=== PATIENT | male | born 1980 | race Caucasian/White ===

== ENCOUNTER 2017-04-04 05:07 | Observation (INO) ==
[2017-04-04] MEDS ORDERED: 0.9 % Sodium Chloride 1,000 ML IVC ONE ×2 (05:21→05:26)
[2017-04-04] MEDS ORDERED: Vancomycin 1,000 MG VIAL IVPB ONE (05:21)
[2017-04-04] MEDS ORDERED: *HR* LORazepam 2 MG/ML VIAL IVP ONE (05:26)
--- NOTE | 2017-04-04 05:28 | Emergency Department Note ---
Disposition Clinical Impression: Cellulitis and abscess of upper arm and forearm Disposition: Admitted As Inpatient Condition: Fair Forms: ED Satisfaction Letter Skin/Abscess/FB HPI Chief complaint: ED Skin/Abscess/Foreign Body Stated complaint: left arm/hand abscess Time Seen by Provider: 04/04/17 05:11 Source: patient Mode of arrival: private vehicle Limitations: no limitations Nursing Notes Reviewed: Yes Vital Signs Reviewed: Yes Pt Subjective Complaint: abscess/boil Onset (ago): day(s) (3-4) Tetanus Up to Date: yes Location: LUE (left AC) Severity: severe Quality: sharp Consistency: constant Improves with: none Worsens with: other (being cuffed by police) Context: IVDA Associated symptoms: Denies: fever, chills, rigors, itching, nausea, vomiting, malaise, arthralgias, shortness of breath Treatments prior to arrival: bandages Previous Rx's Medication Instructions Recorded Gabapentin [Neurontin] 800 mg PO TID #180 capsule 11/22/15 Clomipramine HCl [Anafranil] 50 mg PO HS #60 capsule 01/31/16 Quetiapine Fumarate [Seroquel] 50 mg PO BID #120 tablet 01/31/16 Allergies Allergy/AdvReac Type Severity Reaction Status Date / Time No Known Allergies Allergy Verified 11/18/15 12:01 All systems ED: reviewed and negative except as stated. Review of Systems: As Per HPI Constitutional: Denies: fever, chills, weakness Cardiovascular: Denies: chest pain, palpitations Respiratory: Denies: cough, dyspnea Gastrointestinal: Denies: abdominal pain, nausea, vomiting Musculoskeletal: Denies: back pain, neck pain, joint swelling Neurological: Denies: numbness, paresthesias Hematological/Lymphatic: Denies: easy bleeding, easy bruising, lymphadenopathy Past Medical History - Past Medical History Attestation: Yes The following information was validated with the patient. Source: patient Medical history: Reports: hepatitis, other Surgical history: Reports: other Psychiatric history: Reports: anxiety, depression, prior suicide attempt, previous psychiatric hospitalization - Social History Smoking Status: Current every day smoker Smokeless Tobacco Status: No Alcohol use: Reports: none Drug use: Reports: cocaine, opiates, IV Drug Use, other Physical Exam - General Limitations: no limitations General appearance: alert, in no apparent distress, anxious - Head Head exam: atraumatic, normocephalic, normal inspection - Eye Eye exam: Present: normal appearance, PERRL. Absent: scleral icterus, conjunctival injection, periorbital swelling - ENT ENT exam: mucous membranes moist - Neck Neck exam: Present: normal inspection, full ROM, trachea midline. Absent: meningismus - Chest Chest inspection: Present: normal inspection - Respiratory Respiratory exam: Present: normal lung sounds bilaterally. Absent: respiratory distress - Cardiovascular Cardiovascular exam: Present: normal rhythm, tachycardia - Extremities Exam Extremities exam: Present: tenderness, normal capillary refill - Neurological Exam Neurological exam: Present: alert, oriented X3, CN II-XII intact, normal gait - Psychiatric Psychiatric exam: Present: normal mood, anxious, flat affect - Skin Skin exam: Present: warm, dry, intact - Expanded Skin Exam Type of lesion: Present: abscess Distribution: LUE (left distal volar humeral area to proximal forearm, tender, indurated, spontaneously draining abscess with erythema extending to mid forearm and mid upper arm.) Description: Present: tenderness, erythematous, swelling, indurated Course Course Narrative: Patient with history of IV drug abuse presents from the street by private auto for evaluation of left arm pain, redness and swelling from an abscess. He states that he has had the abscess for three or four days. He believes it is from injecting heroin. He denies fever, chills, nausea, vomiting, paresthesias or weakness in the extremity, chest pain, shortness of breath, confusion, lethargy, or syncope. He states that he does feel anxious about being here. On exam, he does appear to be anxious and is tachycardic. Heart rhythm is regular. No murmurs are heard. He has significant circumferential cellulitis of the left arm. He has intact sensory and motor function in the radial, ulnar and median nerve distributions of the left upper extremity. There is no palpable subcutaneous emphysema. There is a significant amount of purulent material draining from a 2 cm in diameter size circular opening in the left AC. Labs, meds and fluids have been ordered. Case was discussed with Dr. Gomes. He has had [id number] time with the patient and agrees with the assessment and plan. Patient will be admitted. Vital Signs Temperature 98.2 F 04/04/17 05:09 Pulse Rate 132 04/04/17 05:09 Respiratory Rate 16 04/04/17 05:09 Blood Pressure 139/82 04/04/17 05:09 O2 Sat by Pulse Oximetry 100 04/04/17 05:09 Temperature 98.2 F 04/04/17 05:09 Pulse Rate 132 04/04/17 05:09 Respiratory Rate 16 04/04/17 05:09 Blood Pressure 139/82 04/04/17 05:09 O2 Sat by Pulse Oximetry 100 04/04/17 05:09 Oxygen Delivery Oxygen Delivery Room Air Skin/Abscess/Foreign Body - Medical Records Medical records reviewed: Yes I reviewed the patient's medical records. - Lab Data Lab results reviewed: Yes I reviewed the patient's lab results. Lab results narrative: Laboratory Last Values WBC 16.4 K/mcL (4.3-11.1) H 04/04/17 05:30 RBC 4.97 M/mcL (4.19-5.50) 04/04/17 05:30 Hgb 14.6 g/dL (12.9-16.9) 04/04/17 05:30 Hct 41.3 % (37.5-50.1) 04/04/17 05:30 MCV 83.1 fL (83.0-100.0) 04/04/17 05:30 MCH 29.4 pg (28.0-33.3) 04/04/17 05:30 MCHC 35.4 g/dL (31.6-35.5) 04/04/17 05:30 RDW 12.3 % (11.5-14.5) 04/04/17 05:30 Plt Count 199 K/mcL (140-400) 04/04/17 05:30 MPV 8.9 fL (9.4-12.4) L 04/04/17 05:30 Immature Gran % 0.7 % (0-4) 04/04/17 05:30 Seg Neutrophils % 88.3 % 04/04/17 05:30 Lymphocytes % 5.2 % 04/04/17 05:30 Monocytes % 5.4 % 04/04/17 05:30 Eosinophils % 0.1 % 04/04/17 05:30 Basophils % 0.3 % 04/04/17 05:30 Neutrophils # 14.5 K/mcL (1.6-8.9) H 04/04/17 05:30 Lymphocytes # 0.9 K/mcL (0.6-4.6) 04/04/17 05:30 Monocytes # 0.9 K/mcL (0.0-1.3) 04/04/17 05:30 Eosinophils # 0.0 K/mcL (0.0-0.6) 04/04/17 05:30 Basophils # 0.1 K/mcL (0.0-0.2) 04/04/17 05:30 Sodium 138 mEq/L (136-145) 04/04/17 05:30 Potassium 3.5 mEq/L (3.5-5.1) 04/04/17 05:30 Chloride 96 mEq/L (98-107) L 04/04/17 05:30 Carbon Dioxide 33 mEq/L (23-29) H 04/04/17 05:30 BUN 10 mg/dL (6-20) 04/04/17 05:30 Creatinine 0.75 mg/dL (0.70-1.30) 04/04/17 05:30 Est GFR ( Amer) > 60 (> 60) 04/04/17 05:30 Est GFR (Non-Af Amer) > 60 (> 60) 04/04/17 05:30 BUN/Creatinine Ratio 13 (6-26) 04/04/17 05:30 Glucose 130 mg/dL (70-105) H 04/04/17 05:30 Calculated Osmolality 287 (280-300) 04/04/17 05:30 Calcium 9.2 mg/dL (8.6-10.3) 04/04/17 05:30
[2017-04-04 05:39] LABS: Basophils # 0.1 K/mcL (0.0-0.2); Basophils % 0.3 %; Eosinophils % 0.1 %; Hematocrit 41.3 % (37.5-50.1); Hemoglobin 14.6 g/dL (12.9-16.9); Immature Granulocytes % 0.7 % (0-4); Lymphocytes # 0.9 K/mcL (0.6-4.6); Lymphocytes % 5.2 %; Mean Corpuscular HGB Conc 35.4 g/dL (31.6-35.5); Mean Corpuscular Hemoglobin 29.4 pg (28.0-33.3); Mean Corpuscular Volume 83.1 fL (83.0-100.0); Mean Platelet Volume 8.9 fL (9.4-12.4); Monocytes # 0.9 K/mcL (0.0-1.3); Monocytes % 5.4 %; Neutrophils # 14.5 K/mcL (1.6-8.9); Platelet Count 199 K/mcL (140-400); Red Blood Count 4.97 M/mcL (4.19-5.50); Red Cell Distribution Width 12.3 % (11.5-14.5); Segmented Neutrophils % 88.3 %
[2017-04-04] MEDS ORDERED: Vancomycin 1,000 MG in D5% in Water 250 ML IVPB ONE (05:40)
[2017-04-04] MEDS ORDERED: Piperacillin/Tazobactam 3.375 GM in Water for inj. (sterile) 20 ML 20 ML IVP SCH (05:45)
[2017-04-04 05:53] LABS: BUN/Creatinine Ratio 13 (6-26); Blood Urea Nitrogen 10 mg/dL (6-20); Calcium 9.2 mg/dL (8.6-10.3); Carbon Dioxide 33 mEq/L (23-29); Chloride 96 mEq/L (98-107); Glucose 130 mg/dL (70-105); Osmolality,Calculated 287 (280-300); Potassium 3.5 mEq/L (3.5-5.1); Sodium 138 mEq/L (136-145); eGFR For African Americans > 60 (> 60); eGFR For Non-African Americans > 60 (> 60)
--- NOTE | 2017-04-04 06:09 | Emergency Department Note ---
Disposition Clinical Impression: Cellulitis and abscess of upper arm and forearm Disposition: Admitted As Inpatient Condition: Fair Referrals: NONE,PCP [Primary Care Provider] - Forms: ED Satisfaction Letter General Adult HPI - General Chief complaint: ED Skin/Abscess/Foreign Body Stated complaint: left arm/hand abscess Time Seen by Provider: 04/04/17 05:11 Source: patient Mode of arrival: private vehicle Limitations: no limitations - History of Present Illness Pain Scale: 10 - Related Data Previous Rx's Medication Instructions Recorded Gabapentin [Neurontin] 800 mg PO TID #180 capsule 11/22/15 Clomipramine HCl [Anafranil] 50 mg PO HS #60 capsule 01/31/16 Quetiapine Fumarate [Seroquel] 50 mg PO BID #120 tablet 01/31/16 Allergies Allergy/AdvReac Type Severity Reaction Status Date / Time No Known Allergies Allergy Verified 11/18/15 12:01 Constitutional: Denies: fever, chills, weakness Cardiovascular: Denies: chest pain, palpitations Respiratory: Denies: cough, dyspnea Gastrointestinal: Denies: abdominal pain, nausea, vomiting Musculoskeletal: Denies: back pain, neck pain, joint swelling Neurological: Denies: numbness, paresthesias Hematological/Lymphatic: Denies: easy bleeding, easy bruising, lymphadenopathy Past Medical History - Past Medical History Medical history: Reports: hepatitis, other Surgical history: Reports: other Psychiatric history: Reports: anxiety, depression, prior suicide attempt, previous psychiatric hospitalization - Social History Smoking Status: Current every day smoker Smokeless Tobacco Status: No Alcohol use: Reports: none Drug use: Reports: cocaine, opiates, IV Drug Use, other Physical Exam - General Limitations: no limitations General appearance: alert, in no apparent distress, anxious Course Vital Signs Temperature 98.2 F 04/04/17 05:09 Pulse Rate 132 04/04/17 05:09 Respiratory Rate 16 04/04/17 05:09 Blood Pressure 139/82 04/04/17 05:09 O2 Sat by Pulse Oximetry 100 04/04/17 05:09 Temperature 98.2 F 04/04/17 05:09 Pulse Rate 132 04/04/17 05:09 Respiratory Rate 16 04/04/17 05:09 Blood Pressure 139/82 04/04/17 05:09 O2 Sat by Pulse Oximetry 100 04/04/17 05:09 Oxygen Delivery Oxygen Delivery Room Air Medical Decision Making - Lab Data Result diagrams: 04/04/17 05:30 04/04/17 05:30 Lab Results 04/04/17 04/04/17 Range/Units 05:30 05:30 WBC 16.4 H (4.3-11.1) K/mcL RBC 4.97 (4.19-5.50) M/mcL Hgb 14.6 (12.9-16.9) g/dL Hct 41.3 (37.5-50.1) % MCV 83.1 (83.0-100.0) fL MCH 29.4 (28.0-33.3) pg MCHC 35.4 (31.6-35.5) g/dL RDW 12.3 (11.5-14.5) % Plt Count 199 (140-400) K/mcL MPV 8.9 L (9.4-12.4) fL Immature Gran % 0.7 (0-4) % Seg Neutrophils % 88.3 % Lymphocytes % 5.2 % Monocytes % 5.4 % Eosinophils % 0.1 % Basophils % 0.3 % Neutrophils # 14.5 H (1.6-8.9) K/mcL Lymphocytes # 0.9 (0.6-4.6) K/mcL Monocytes # 0.9 (0.0-1.3) K/mcL Eosinophils # 0.0 (0.0-0.6) K/mcL Basophils # 0.1 (0.0-0.2) K/mcL Sodium 138 (136-145) mEq/L Potassium 3.5 (3.5-5.1) mEq/L Chloride 96 L (98-107) mEq/L Carbon Dioxide 33 H (23-29) mEq/L BUN 10 (6-20) mg/dL Creatinine 0.75 (0.70-1.30) mg/dL Est GFR ( Amer) > 60 (> 60) Est GFR (Non-Af Amer) > 60 (> 60) BUN/Creatinine Ratio 13 (6-26) Glucose 130 H (70-105) mg/dL Calculated Osmolality 287 (280-300) Calcium 9.2 (8.6-10.3) mg/dL Attestation Statement - Attestation Attestation: For this encounter, I have reviewed the PET SITTER or PA documentation, treatment plan, and medical decision making; and I have had face to face time with this patient. Face to face time provided Patient has evidence of cellulitis to his left antecubital fossa. This is at the location of his self-admitted IV drug injection. I have reviewed the labs as ordered by the mid-level provider as well as the image of his left elbow x- ray. I will requested admission to the medicine service at this time for antibiotic therapy. They will decide whether surgical consultation is warranted based on the patient's response to medical therapy
[2017-04-04] MEDS ORDERED: Piperacillin/Tazobactam 3.375 GM/200 ML BAG IVPB SCH (15:30)
[2017-04-04 16:02] VITALS: BP 114/75
--- NOTE | 2017-04-04 16:58 | Discharge Summary ---
Date of Encounter: 04/04/17 Time of Encounter: 16:56 - Discharge Diagnosis (1) Cellulitis and abscess of upper arm and forearm Priority: Primary Status: Acute Comments: Patient needs I and D, IV antibiotics. He refused and left AMA - Discharge Medications Home Medications: No Known Home Drugs 04/04/17 [History] Allergies/Adverse Reactions: 3 Allergy/AdvReac Type Severity Reaction Status Date / Time No Known Allergies Allergy Verified 11/18/15 12:01 Date of admission: 04/04/17 06:26 Primary care physician: PCP NONE Consults: 04/04/17 09:14 Consult to [employer] [CONS] Routine Reason for SW Consult: Drug abuse - Patient Status Disposition: Left Against Medical Advice Condition: Fair - Discharge Instructions Follow Up With: NONE,PCP [Primary Care Provider] - Interval History: Patient presented to the hospital with 4 day history of worsening redness, warmth, tenderness and swelling of left forarm and arm related to IVDA. He has cellultiis with abscess formation and purulent drainage. I have seen the patient and told him that he needs another day of IV antibiotics and optimal drainage of the abscess but he refused and left AMA. I gave him prescription for 10 days of bactrim and keflex. Hospital course: Mr. Lucas is a 36 year old male - Time Spent with Patient Total time spent providing and/or coordinating discharge services: - Constitutional Vitals: Temp Pulse Resp BP Pulse Ox 98 F 82 16 114/75 100 04/04/17 15:59 04/04/17 15:59 04/04/17 15:59 04/04/17 15:59 04/04/17 15:59 Exam: Gen.: patient is alert oriented times 3 not in distress. ArM: cellulitis in forearm and arm with abscess formation in medial side of arm and purulent drainage
== END 2017-04-04 18:00 | disposition left against medical advice (07) ==
LOC: EMEROO 05:07 → 2SOUTHHOLD 05:07 → 3BNU 14:36
PROVIDERS: ADMIT Internal Medicine; ATTEND Hospitalist

== ENCOUNTER 2017-04-05 00:13 | Observation (INO) ==
[2017-04-05] MEDS ORDERED: Td (TENIVAC) Vaccine 0.5 ML VIAL IM ONE (01:32)
[2017-04-05] MEDS ORDERED: 0.9 % Sodium Chloride 1,000 ML IVC ONE (01:32)
[2017-04-05] MEDS ORDERED: *HR* HYDROcodone/Acet 5/325 mg TABLET PO ONE (01:32)
[2017-04-05] MEDS ORDERED: Vancomycin 1,000 MG in D5% in Water 250 ML IVPB ONE (01:33)
[2017-04-05] MEDS ORDERED: Ketorolac 15 MG/ML VIAL IVP ONE (01:34)
--- NOTE | 2017-04-05 02:01 | Emergency Department Note ---
Disposition Clinical Impression: Abscess, Cellulitis and abscess of upper arm and forearm Disposition: Admitted As Inpatient Condition: Fair Time of Disposition: 04:26 Skin/Abscess/FB HPI Chief complaint: ED Wound/Laceration Stated complaint: Abscess Time Seen by Provider: 04/05/17 00:16 Source: patient Mode of arrival: ambulatory Limitations: no limitations Nursing Notes Reviewed: Yes Vital Signs Reviewed: Yes HPI Narrative: 36-year-old male presents complaining of left arm pain and swelling, he states his pain is 10 out of 10 his history of IV drug use he was recently in the hospital yesterday and left AGAINST MEDICAL ADVICE because he was acting pain medication. Patient has a history of abscess, he is states he has never had any previous abscesses. He was seen and evaluated in the emergency Department admitted to the care of Dr. Carlson, plan was for additional IV antibiotics and possible surgical incision and drainage. Patient reports low-grade fevers and chills, denies chest pain shortness of breath or nausea. Pt Subjective Complaint: rash Onset (ago): day(s) Tetanus Up to Date: unsure Location: LUE Severity: moderate Severity scale (1-10): 9 Quality: aching Consistency: constant Improves with: none Worsens with: none Associated symptoms: Reports: fever, chills. Denies: rigors, itching, nausea, malaise, arthralgias, shortness of breath Home Medications Medication Instructions Recorded Confirmed No Known Home Drugs 04/04/17 04/04/17 Allergies Allergy/AdvReac Type Severity Reaction Status Date / Time No Known Allergies Allergy Verified 11/18/15 12:01 All systems ED: reviewed and negative except as stated. Review of Systems: As Per HPI Constitutional: Reports: fever, chills Eyes: Denies: eye pain ENT ED: Denies: ear pain, congestion Cardiovascular: Denies: chest pain, palpitations Respiratory: Denies: cough, dyspnea Gastrointestinal: Denies: abdominal pain, nausea Genitourinary: Denies: urgency Musculoskeletal: Denies: back pain, neck pain Integumentary: Reports: as per HPI, rash, lesions Neurological: Denies: headache Past Medical History - Past Medical History Attestation: Yes The following information was validated with the patient. Source: patient Medical history: Reports: hepatitis, other Surgical history: Reports: other Psychiatric history: Reports: anxiety, depression, prior suicide attempt, previous psychiatric hospitalization - Social History Smoking Status: Current every day smoker Smokeless Tobacco Status: No Alcohol use: Reports: none Drug use: Reports: cocaine, opiates, IV Drug Use, other Physical Exam Constitutional: Thin young male afebrile, vss Eyes: PERRLA, sclera anicteric ENT & Mouth: MM dry Neck: normal inspection, neck is supple Resp: CTA bilaterally, no resp distress CV: RRR, no m/g/r GI: normal inspection, soft, no guarding or rigidity Neuro: A&O3, CNII-XII grossly intact, BAEZ Skin: Left antecubital fossa with indurated ulcerated lesion, with fluctuance and tenderness, draining pus surrounding cellulitis streaking around the arm, from the touch, neurovascularly intact left hand. - General General appearance: alert, in no apparent distress Course Course Narrative: 36-year-old male with left upper extremity pain and swelling, pus drained out of his antecubital fossa findings consistent with abscess, basic lab work CBC blood cultures were added, he was recently discharged left AGAINST MEDICAL ADVICE from the hospital. - Reevaluation(s) Reevaluation #1: Patient is afebrile and nontoxic with leukocytosis, abscess in left arm, started empirically on vancomycin I spoke with the hospitalist Dr. Arenas he recommended adding Zosyn and venous CT scan of the arm for better evaluation with the general surgery consult plan will be for admission to non-telemetry bed. Time: 04:26 Vital Signs Temperature 99.1 F 04/05/17 00:15 Pulse Rate 108 04/05/17 00:15 Respiratory Rate 20 04/05/17 00:15 Blood Pressure 118/73 04/05/17 00:15 O2 Sat by Pulse Oximetry 99 04/05/17 00:15 Temperature 99.1 F 04/05/17 00:15 Pulse Rate 90 04/05/17 04:22 Respiratory Rate 14 04/05/17 04:22 Blood Pressure 108/78 04/05/17 04:22 O2 Sat by Pulse Oximetry 98 04/05/17 04:22 Oxygen Delivery Oxygen Delivery Room Air Skin/Abscess/Foreign Body - Differential Diagnosis Likely: abscess of skin or subcutaneous tissue, urticaria, allergic reaction to drug, cellulitis - Medical Records Medical records reviewed: Yes I reviewed the patient's medical records. - Lab Data Lab results reviewed: Yes I reviewed the patient's lab results. Result diagrams: 04/05/17 03:34 04/05/17 03:01 Lab Results 04/05/17 04/05/17 04/05/17 Range/Units 03:01 03:01 03:34 WBC 12.4 H (4.3-11.1) K/mcL RBC 4.09 L (4.19-5.50) M/mcL Hgb 11.9 L D (12.9-16.9) g/dL Hct 34.2 L (37.5-50.1) % MCV 83.6 (83.0-100.0) fL MCH 29.1 (28.0-33.3) pg MCHC 34.8 (31.6-35.5) g/dL RDW 12.4 (11.5-14.5) % Plt Count 198 (140-400) K/mcL MPV 9.2 L (9.4-12.4) fL Immature Gran % 0.6 (0-4) % Seg Neutrophils % 72.2 % Lymphocytes % 14.4 % Monocytes % 10.3 % Eosinophils % 2.1 % Basophils % 0.4 % Neutrophils # 9.0 H (1.6-8.9) K/mcL Lymphocytes # 1.8 (0.6-4.6) K/mcL Monocytes # 1.3 (0.0-1.3) K/mcL Eosinophils # 0.3 (0.0-0.6) K/mcL Basophils # 0.1 (0.0-0.2) K/mcL Immature Plt Fraction 1.8 (1.1-6.1) % Sodium 138 (136-145) mEq/L Potassium 3.4 L (3.5-5.1) mEq/L Chloride 104 (98-107) mEq/L Carbon Dioxide 29 (23-29) mEq/L BUN 9 (6-20) mg/dL Creatinine 0.58 L (0.70-1.30) mg/dL Est GFR ( Amer) > 60 (> 60) Est GFR (Non-Af Amer) > 60 (> 60) BUN/Creatinine Ratio 16 (6-26) Glucose 128 H (70-105) mg/dL Calculated Osmolality 286 (280-300) Lactic Acid 0.6 (0.5-2.2) mmol/L Calcium 8.0 L (8.6-10.3) mg/dL - Radiology Data Radiology results reviewed: Yes I reviewed the patient's radiology results. Upper Extremity CT 04/05/17 04:10 IMPRESSION: Small abscess in the medial aspect of the distal upper arm. D/ / Eloy Galeas MD / Eloy Galeas MD Interpreting Provider: Eloy Galeas MD Attestation Statement - Attestation Attestation: I, David Martinez MD, personally evaluated this patient and discussed their management with the resident physician. I reviewed the resident's note and agree with the documented findings, medical decision making, and plan of care. 36-year-old male with history of IV drug abuse who was admitted here 24 hours ago with abscess and cellulitis of the left arm. He left AMA. He returns now for worsening pain and swelling in the left arm. Subjective fever. Patient requested pain medication repeatedly. On examination patient is a well-developed well-nourished male in no acute distress. He is alert and oriented 3. There is no cyanosis or diaphoresis. Breath sounds are clear and equal bilaterally. Heart regular with a mild tachycardia. Abdomen soft with normal bowel sounds. There is cellulitis of the left arm with an open draining abscess just above the left antecubital fossa. Labs reviewed. CT showed a small abscess in the medial aspect of the distal upper arm. The hospitalist, Dr. Yepez, was consulted and accepted admission of the patient.
[2017-04-05 03:22] LABS: BUN/Creatinine Ratio 16 (6-26); Blood Urea Nitrogen 9 mg/dL (6-20); Carbon Dioxide 29 mEq/L (23-29); Chloride 104 mEq/L (98-107); Glucose 128 mg/dL (70-105); Osmolality,Calculated 286 (280-300); Potassium 3.4 mEq/L (3.5-5.1); Sodium 138 mEq/L (136-145); eGFR For African Americans > 60 (> 60); eGFR For Non-African Americans > 60 (> 60)
[2017-04-05 03:44] LABS: Basophils # 0.1 K/mcL (0.0-0.2); Basophils % 0.4 %; Eosinophils # 0.3 K/mcL (0.0-0.6); Eosinophils % 2.1 %; Hematocrit 34.2 % (37.5-50.1); Immature Granulocytes % 0.6 % (0-4); Immature Platelets 1.8 % (1.1-6.1); Lymphocytes # 1.8 K/mcL (0.6-4.6); Lymphocytes % 14.4 %; Mean Corpuscular HGB Conc 34.8 g/dL (31.6-35.5); Mean Corpuscular Hemoglobin 29.1 pg (28.0-33.3); Mean Corpuscular Volume 83.6 fL (83.0-100.0); Mean Platelet Volume 9.2 fL (9.4-12.4); Monocytes # 1.3 K/mcL (0.0-1.3); Monocytes % 10.3 %; Platelet Count 198 K/mcL (140-400); Red Blood Count 4.09 M/mcL (4.19-5.50); Red Cell Distribution Width 12.4 % (11.5-14.5); Segmented Neutrophils % 72.2 %
[2017-04-05 03:46] LABS: Hemoglobin 11.9 g/dL (12.9-16.9)
[2017-04-05] MEDS ORDERED: Piperacillin/Tazobactam 3.375 GM in D5% in Water (Mini-Bag+) 100 ML IVPB ONE (04:11)
[2017-04-05] MEDS ORDERED: Piperacillin/Tazobactam 3.375 GM in Water for inj. (sterile) 20 ML 20 ML IVP ONE (04:30)
[2017-04-05] MEDS ORDERED: Piperacillin/Tazobactam 3.375 GM in Water for inj. (sterile) 20 ML 20 ML IVPB ONE (04:30)
[2017-04-05] MEDS ORDERED: *HR* HYDROmorphone (PF) 1 MG/ML SYRINGE IVP PRN ×2 (07:44→18:13)
[2017-04-05] MEDS ORDERED: Ondansetron 4 MG/2 ML VIAL IVP PRN (07:44)
--- NOTE | 2017-04-05 07:51 | Internal Med History&Physical ---
Date of Encounter: 04/05/17 Time of Encounter: 07:49 Assessment and Plan (1) Drug abuse Current visit: No Status: Acute Patient injects heroin twice-weekly. (2) Cellulitis and abscess of upper arm and forearm Current visit: Yes Status: Acute Start patient on vancomycin and Zosyn. Surgery evaluation for further debridement. Await cultures and sensitivity. Internal Medicine - H&P: HPI Chief complaint: left arm pain and redness History of present illness: Mr. Lucas is a 36 year old male was an IV drug abuser presents to the emergency room yesterday with cellulitis and abscess of the medial side of the left forearm and arm. He left against medical advice and presented later to the emergency room. Patient mentioned that for the past 4 days he has been noticing progressive increasing redness warmth tenderness and swelling of the medial side of left forearm and arm. This was related to an injection of drugs. He later Started noticing pus being expressed from wound. Notice subjective fevers and chills. Past Med Surg Social Fam HX - Past Medical History Medical history: hepatitis, other Psychiatric history: anxiety, depression, prior suicide attempt, previous psychiatric hospitalization - Past Surgical History Surgical History: other - Social History Smoking Status: Current every day smoker Smokeless Tobacco Status: No Alcohol use: none Drug use: cocaine, opiates, IV Drug Use, other Internal Medicine - H&P: Meds No Known Home Drugs 04/04/17 [History] 3 Allergy/AdvReac Type Severity Reaction Status Date / Time No Known Allergies Allergy Verified 11/18/15 12:01 All Systems PM: A 10-system review of systems was performed and is negative for pertinent findings except as documented above in the HPI. Review of systems: 10 point review system is negative except for HPI - Constitutional Vitals: Temp Pulse Resp BP Pulse Ox 97.9 F 76 16 100/51 99 04/05/17 06:58 04/05/17 06:58 04/05/17 06:58 04/05/17 06:58 04/05/17 06:58 Exam: Gen.: patient is alert oriented times 3 not in distress. Cardiac: normal S1 S2 no additional sounds are murmurs. Lower extremity no swelling mucous membranes: moist Left arm: redness, warmth, tenderness, swelling in medial side of left forearm and arm with fluctuation and drainage of pus Internal Med - H&P Results - Labs CBC & Chem 7: 04/05/17 03:34 04/05/17 03:01
[2017-04-05] MEDS: Famotidine 20 MG TABLET PO SCH ×2 (09:18→20:03)
[2017-04-05] MEDS: 0.9 % Sodium Chloride 1,000 ML IVC SCH ×2 (09:18→16:07)
--- NOTE | 2017-04-05 11:53 | General Surgery Consult Note ---
<Jocelyn Tobar Dilip - Last Filed: 04/05/17 13:03> Date of Encounter: 04/05/17 Time of Encounter: 11:50 Assessment and Plan (1) Abscess Status: Acute Area of the left upper extremity proximal and medial aspect to the antecubatal fossa with 2 areas open areas. The first measured aprox 2x2 cm and the second aprox 1.5x2cm. The areas were connected with a very small and thin piece of skin. This skin was cut with sterile and the entire wound was flushed with 40 ML 's of normal saline. A small amount of pus was further expelled. There is an area of tunneling noted at the 11 o'clock position approximately 2 cm in length. The area was packed with 1/4 inch plain gauze. The wound was covered with a dry dressing. Patient tolerated this procedure with some minor discomfort. The surrounding areas of cellulitis were previously marked by the emergency department and is noted to have approximately 1/2 to 1 cm marginal decrease since starting IV ATBX. Currently on Zosyn and Vanc Plan: -cultures pending -agree with IV antibiotics Beginning 04/06/2017: daily wound care: remove dressing and packing. Wash with antibacterial soap. Pat dry. Repack with 1/4 inch plain gauze. Cover with a dry dressing and tape to secure. Alphonso states that his mother will help him with wound care at home and will be able to do the packing for him. -f/u in the office for a wound check Surgery will sign off at this time. Thank you for allowing us to participate in Mr. Lucas's care. Please re-console with questions or needs arise. (2) Cellulitis and abscess of upper arm and forearm Status: Acute See assessment and plan above. (3) IV drug abuse Status: Acute Management per primary team. Pt did state he was able to stop IVDU in the past and is open to treatment. Strongly advised to seek treatment and stop use. History of Present Illness Consult date: 04/05/17 (Dr. Rajendra Beard) Reason for consult: other (Left arm abscess) Requesting physician: Arash Carlson History of present illness: Mr. 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 He reports an IVDU of 10 years with a brief "3-4 year episode when I was clean." He denies surgical or family history. 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 He states the area on his left arm appeared shortly after injecting heroin. He describes the area as painful, draining, and getting larger and that his entire left arm hurts, limits motion, and is draining yello pus. He denies fevers, chills, chest pain, shortness of breath, abdominal pain, constipation, diarrhea, or changes in bowel habits. Surgery has been asked to evaluate this patient for recommendations regarding left arm abscess. His hospital course has included CT with contrast of the left upper extremity which revealed subcutaneous edema throughout most of the visualized upper extremity. There is a poorly defined a regular fluid collection in the medial aspect of the distal upper arm. Measuring 2.5 x 3.3 cm within small overlying skin defect. There is no mention of osteomyelitis. His WBC on 04/04/2017 was 16.4. He was started on vancomycin. As white blood cell count today is 12.4. Per record review, the area was spontaneously draining in the emergency department and cultures were obtained at that time. No results are available for review at this time. 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) Current living situation: Home - Independent Activity Level: Independent ambulation Recent Out of Country Travel Within the Last 8 Weeks: No Exposure or Possible Exposure to Illness During Travel: No Medications and Allergies Adhesive Tape [Paper Tape] 1 each TP AD #1 tape 04/05/17 [Rx] Polyhexam Biguan/Gauze Bandage [Curity Amd 4"X4" Non-Woven] 1 each TP AD #30 sponge 04/05/17 [Rx] Polyhexam Biguan/Gauze Bandage [Curity Amd Packing Strips] 1 each TP AD #3 strip 04/05/17 [Rx] 3 Allergy/AdvReac Type Severity Reaction Status Date / Time No Known Allergies Allergy Verified 11/18/15 12:01 Review of Systems All systems PM: reviewed and no additional remarkable complaints except as stated All systems PM: A 10-system review of systems was performed and is negative for pertinent findings except as documented above in the HPI. General Surgery Exam Initial Vital Signs Temp Pulse Resp BP Pulse Ox 99.1 F 108 20 118/73 99 04/05/17 00:15 04/05/17 00:15 04/05/17 00:15 04/05/17 00:15 04/05/17 00:15 - General physical appearance no distress, moderate pain - ENT atraumatic, normocephalic - Neck no masses, no venous distension - Respiratory normal expansion, normal respiratory effort - Cardiovascular Cardiovascular exam: Present: RRR - Abdomen Abdomen general surgery: Present: bowel sounds present, soft, non tender - Integumentary Integumentary general surgery: Present: warm and dry, other - Neurologic Present: CN 2-12 grossly intact, normal coordination, normal sensation - Musculoskeletal Present: normal gait, normal posture - Psychiatric Psychiatric general surgery: Present: A&Ox3, appropriate, oriented to person, oriented to place, oriented to time Exam Initial Vital Signs Temp Pulse Resp BP Pulse Ox 99.1 F 108 20 118/73 99 04/05/17 00:15 04/05/17 00:15 04/05/17 00:15 04/05/17 00:15 04/05/17 00:15 Results - Labs 04/05/17 03:34 04/05/17 03:01 Abnormal lab results WBC 12.4 K/mcL (4.3-11.1) H 04/05/17 03:34 RBC 4.09 M/mcL (4.19-5.50) L 04/05/17 03:34 Hgb 11.9 g/dL (12.9-16.9) L D 04/05/17 03:34 Hct 34.2 % (37.5-50.1) L 04/05/17 03:34 MPV 9.2 fL (9.4-12.4) L 04/05/17 03:34 Neutrophils # 9.0 K/mcL (1.6-8.9) H 04/05/17 03:34 Potassium 3.4 mEq/L (3.5-5.1) L 04/05/17 03:01 Creatinine 0.58 mg/dL (0.70-1.30) L 04/05/17 03:01 Glucose 128 mg/dL (70-105) H 04/05/17 03:01 Calcium 8.0 mg/dL (8.6-10.3) L 04/05/17 03:01 All other labs normal. - Imaging Additional studies: Upper Extremity CT 04/05/17 04:10 IMPRESSION: Small abscess in the medial aspect of the distal upper arm. D/ / Eloy Galeas MD / Eloy Galeas MD Interpreting Provider: Eloy Galeas MD Consult Discharge Plan - Plan Instructions: Abscess (GEN) Additional Instructions: Daily wound care: remove dressing and packing Showers/wash with antibacterial soap Repack with 1/4 inch plain gauze Cover with a dry dressing Tape to secure Referrals: Jocelyn Tobar, INSTRUMENTATION TECH [Advanced Practice Nurse] - 04/13/17 3:20 pm Prescriptions: Adhesive Tape [Paper Tape] 1 each TP AD #1 tape Polyhexam Biguan/Gauze Bandage [Curity Amd 4"X4" Non-Woven] 1 each TP AD #30 sponge Polyhexam Biguan/Gauze Bandage [Curity Amd Packing Strips] 1 each TP AD #3 strip <Rajendra Beard - Last Filed: 04/06/17 15:05> Date of Encounter: 04/05/17 Review of Systems All systems PM: A 10-system review of systems was performed and is negative for pertinent findings except as documented above in the HPI. General Surgery Exam Initial Vital Signs Temp Pulse Resp BP Pulse Ox 99.1 F 108 20 118/73 99 04/05/17 00:15 04/05/17 00:15 04/05/17 00:15 04/05/17 00:15 04/05/17 00:15 Exam Initial Vital Signs Temp Pulse Resp BP Pulse Ox 99.1 F 108 20 118/73 99 04/05/17 00:15 04/05/17 00:15 04/05/17 00:15 04/05/17 00:15 04/05/17 00:15 Results - Labs 04/05/17 03:34 04/05/17 03:01 Abnormal lab results WBC 12.4 K/mcL (4.3-11.1) H 04/05/17 03:34 RBC 4.09 M/mcL (4.19-5.50) L 04/05/17 03:34 Hgb 11.9 g/dL (12.9-16.9) L D 04/05/17 03:34 Hct 34.2 % (37.5-50.1) L 04/05/17 03:34 MPV 9.2 fL (9.4-12.4) L 04/05/17 03:34 Neutrophils # 9.0 K/mcL (1.6-8.9) H 04/05/17 03:34 Potassium 3.4 mEq/L (3.5-5.1) L 04/05/17 03:01 Creatinine 0.58 mg/dL (0.70-1.30) L 04/05/17 03:01 Glucose 128 mg/dL (70-105) H 04/05/17 03:01 Calcium 8.0 mg/dL (8.6-10.3) L 04/05/17 03:01 All other labs normal. - Attending Attestation I have personally performed a face to face evaluation on this patient. I have reviewed and agree with the care plan. History and Exam by me shows: The patient is seen and evaluated and clinical information is shared with the clinical nurse practitioner. I agree with the diagnosis of cellulitis being appropriately treated with antibiotics. Minor debridement is indicated. Should resolve with antibiotic therapy. Rajendra Beard MD FACS
[2017-04-05] MEDS ORDERED: Vancomycin 1,000 MG in D5% in Water 250 ML IVPB SCH ×2 (14:00)
[2017-04-05] MEDS ORDERED: Piperacillin/Tazobactam 3.375 GM/200 ML BAG IVPB SCH ×2 (14:00→16:00)
[2017-04-05] MEDS ORDERED: *HR* LORazepam 0.5 MG TABLET PO PRN (15:56)
[2017-04-05] MEDS: *HR* HYDROcodone/Acet 10/325 mg TABLET PO PRN ×2 (16:06→20:03)
[2017-04-05 19:35] VITALS: BP 117/74
[2017-04-05] MEDS ORDERED: Aminoglycoside Consult 1 EACH MC ONE (21:18)
--- NOTE | 2017-04-05 21:28 | Event Note ---
Date of Encounter: 04/05/17 Time of Encounter: 21:05 Patient was requesting additional pain medications citing 10/10 pain due to abscess (s/p I&D) of left forearm AC. Known history of IVDU. Requests IV Dilaudid 2mg q2H. Patient insistent upon leaving AMA prior to my arrival. Risks of leaving and benefits of ongoing treatment explained to patient and he opted to leave AMA regardless. Could not be convinced to stay for ongoing monitoring and treatment. Patient was fully dressed and did not appear to be in any distress upon brief encounter. Forms signed, and patient departed medical floor.
[2017-04-06] MEDS ORDERED: *HR* Enoxaparin 40 MG/0.4 ML SYRINGE SQ SCH (06:00)
--- NOTE | 2017-04-09 12:24 | Event Note ---
Date of Encounter: 04/09/17 Time of Encounter: 12:23 Previsit 04/05/17 patient's culture reports reveals S intermed (s) to clindamycin. However, the patient is homeless and does not have an address her contact information on file. The patient was informed while inpatient that he needed IV antibody therapy until sensitivity was returned in order to start him on oral antibiotics. However, the patient refused and signed out AGAINST MEDICAL ADVICE.
== END 2017-04-05 21:19 | disposition left against medical advice (07) ==
LOC: 3ANU 00:13 → EMEROO 00:13 → 3ANU 05:37
PROVIDERS: ADMIT Pediatrics; ATTEND Hospitalist

== ENCOUNTER 2020-12-17 16:01 | Inpatient (IN) ==
[2020-12-17] MEDS ORDERED: Naloxone 0.4 MG/ML INJ IVP PRN (16:29)
[2020-12-17 16:55] LABS: Immature Granulocytes % 0.3 % (0-4); Red Cell Distribution Width 13.4 % (11.5-14.5)
[2020-12-17 16:57] LABS: Basophils % 0.5 %; Eosinophils # 0.1 K/mcL (0.0-0.6); Eosinophils % 2.7 %; Hematocrit 37.1 % (37.5-50.1); Hemoglobin 12.2 g/dL (12.9-16.9); Immature Platelets 7.6 % (1.1-6.1); Lymphocytes # 1.6 K/mcL (0.6-4.6); Lymphocytes % 43.9 %; Mean Corpuscular HGB Conc 32.9 g/dL (31.6-35.5); Mean Corpuscular Hemoglobin 29.9 pg (28.0-33.3); Mean Corpuscular Volume 90.9 fL (83.0-100.0); Mean Platelet Volume 11.9 fL (9.4-12.4); Monocytes # 0.4 K/mcL (0.0-1.3); Neutrophils # 1.5 K/mcL (1.6-8.9); Red Blood Count 4.08 M/mcL (4.19-5.50); Segmented Neutrophils % 40.6 %; White Blood Count 3.7 K/mcL (4.3-11.1)
[2020-12-17 17:21] LABS: Alanine Aminotransferase 150 Units/L (7-52); Albumin 3.5 g/dL (3.5-5.7); Albumin/Globulin Ratio 1.1 (1.1-2.2); Alkaline Phosphatase 83 Units/L (34-104); Aspartate Amino Transferase 170 Units/L (13-39); BUN/Creatinine Ratio 17 (6-26); Bilirubin,Direct 0.3 mg/dL (0.0-0.2); Bilirubin,Indirect 0.6 mg/dL (0.0-1.0); Bilirubin,Total 0.9 mg/dL (0.3-1.0); Blood Urea Nitrogen 12 mg/dL (6-20); Calcium 8.7 mg/dL (8.6-10.3); Carbon Dioxide 30 mEq/L (23-29); Chloride 103 mEq/L (98-107); Ethanol < 10 mg/dL (Less than 10); Globulin 3.2 g/dL (2.4-3.5); Glucose 111 mg/dL (70-105); Osmolality,Calculated 282 (280-300); Sodium 136 mEq/L (136-145); Total Protein 6.7 g/dL (6.4-8.9); eGFR For African Americans > 60 (> 60); eGFR For Non-African Americans > 60 (> 60)
[2020-12-17 17:32] LABS: Platelet Count 90 K/mcL (140-400); Reactive Lymphocytes Present (Not Present)
[2020-12-17 20:05] LABS: Bilirubin,Urine Small (Negative); Blood,Urine Negative (Negative); Clarity,Urine Ex.Turbid (Clear); Color,Urine Light-Brown (Yellow); Glucose,Urine (UA) Normal (Normal); Hyaline Casts,Urine Few per lpf (None Seen); Ketones,Urine Negative (Negative); Leukocyte Esterase,Urine Negative (Negative); Mucus,Urine Moderate per lpf (None-Few); Nitrite,Urine Negative (Negative); Protein,Urine 30 mg/dL (Neg-Trace); RBC,Urine 0-3 per hpf (0-3); Specific Gravity,Urine > 1.030 (1.010-1.025); Squamous Epithelial Cell,Urine Few per hpf (None-Few); Urobilinogen,Urine >=8.0 mg/dL (Normal); WBC,Urine 0-3 per hpf (0-3)
[2020-12-17 20:21] LABS: Amphetamine Screen,Urine Positive ng/mL (Cutoff=1000); Barbiturate Screen,Urine Negative ng/mL (Cutoff=200); Benzodiazepines Screen,Urine Positive ng/mL (Cutoff=200); Cannabinoid Screen,Urine Positive ng/mL (Cutoff = 50); Cocaine Screen,Urine Negative ng/mL (Cutoff= 300); Opiate Screen,Urine Negative ng/mL (Cutoff=300); Phencyclidine Screen,Urine Negative ng/mL (Cutoff=25)
[2020-12-18] MEDS ORDERED: Dexamethasone Sodium Phos/PF 10 MG/ML VIAL PO ONE (03:31)
[2020-12-18] MEDS ORDERED: Naloxone 0.4 MG/ML INJ IVP PRN (03:38)
[2020-12-18] MEDS ORDERED: Ondansetron ODT 4 MG TAB.RAPDIS SL PRN (03:38)
[2020-12-18 04:15] LABS: Influenza A PCR Negative (Negative); Influenza B PCR Negative (Negative); Resp. Syncytial Virus PCR Negative (Negative)
[2020-12-18 04:16] LABS: SARS-CoV-2 by PCR (In House) Negative (Negative)
[2020-12-18] MEDS: 0.9 % Sodium Chloride 1,000 ML IVC SCH ×2 (04:57→13:44)
[2020-12-18 06:03] LABS: Basophils % 0.5 %; Hemoglobin 12.2 g/dL (12.9-16.9); Immature Granulocytes % 0.3 % (0-4)
[2020-12-18 06:04] LABS: Eosinophils # 0.1 K/mcL (0.0-0.6); Eosinophils % 2.4 %; Hematocrit 36.2 % (37.5-50.1); Lymphocytes # 1.3 K/mcL (0.6-4.6); Lymphocytes % 33.3 %; Mean Corpuscular HGB Conc 33.7 g/dL (31.6-35.5); Mean Corpuscular Hemoglobin 31.1 pg (28.0-33.3); Mean Corpuscular Volume 92.3 fL (83.0-100.0); Mean Platelet Volume 11.4 fL (9.4-12.4); Monocytes # 0.4 K/mcL (0.0-1.3); Monocytes % 10.9 %; Red Blood Count 3.92 M/mcL (4.19-5.50); Red Cell Distribution Width 13.3 % (11.5-14.5); Segmented Neutrophils % 52.6 %; White Blood Count 3.8 K/mcL (4.3-11.1)
[2020-12-18 06:06] LABS: Platelet Count 73 K/mcL (140-400)
[2020-12-18 06:07] LABS: Platelet Estimate Decreased (Normal); Reactive Lymphocytes Present (Not Present)
[2020-12-18 06:11] LABS: INR 1.4; Prothrombin Time 15.9 Seconds (9.4-12.1)
[2020-12-18 06:22] LABS: Alanine Aminotransferase 125 Units/L (7-52); Albumin 2.8 g/dL (3.5-5.7); Albumin/Globulin Ratio 0.9 (1.1-2.2); Alkaline Phosphatase 84 Units/L (34-104); Aspartate Amino Transferase 152 Units/L (13-39); BUN/Creatinine Ratio 19 (6-26); Bilirubin,Total 1.1 mg/dL (0.3-1.0); Blood Urea Nitrogen 10 mg/dL (6-20); Calcium 8.3 mg/dL (8.6-10.3); Carbon Dioxide 26 mEq/L (23-29); Chloride 105 mEq/L (98-107); Glucose 117 mg/dL (70-105); Osmolality,Calculated 280 (280-300); Potassium 3.9 mEq/L (3.5-5.1); Sodium 135 mEq/L (136-145); Total Protein 5.8 g/dL (6.4-8.9); eGFR For African Americans > 60 (> 60); eGFR For Non-African Americans > 60 (> 60)
[2020-12-18 08:41] LABS: Magnesium 1.6 mg/dL (1.6-2.6)
[2020-12-18] MEDS ORDERED: Haloperidol Lactate 5 MG/ML VIAL IVP PRN (09:40)
[2020-12-19] MEDS: Ketorolac 15 MG/ML VIAL IVP PRN ×2 (00:06→08:05)
[2020-12-19] MEDS ORDERED: *HR* LORazepam 0.5 MG TABLET PO PRN ×3 (08:34→12:05)
[2020-12-19] MEDS ORDERED: cloNIDine HCL 0.1 MG TABLET PO PRN (08:34)
[2020-12-19 09:24] VITALS: O2SAT 100
[2020-12-19] MEDS ORDERED: Nicotine 21 MG PATCH.TD24 TD SCH (12:15)
[2020-12-19 15:17] VITALS: TEMP 98.1
[2020-12-19 17:47] VITALS: BP 112/73; PULSE 76
== END 2020-12-19 19:41 | DRG 817 ==
LOC: EMEROOARM 16:01 → 3BNU 16:01
PROVIDERS: ADMIT Internal Medicine; ATTEND Internal Medicine